=== PATIENT | male | born 1985 | race Caucasian/White ===

== ENCOUNTER 2018-12-23 08:31 | Emergency (ER) | payer BC ==
--- NOTE | 2018-12-23 08:52 | EDM.PDOC ---
ED HPI GENERAL MEDICAL PROBLEM - General Chief Complaint: Respiratory Problem Stated Complaint: COUGH Time Seen by Provider: 12/23/18 08:46 Source of Information: Reports: Patient History Limitations: Reports: No Limitations - History of Present Illness INITIAL COMMENTS - FREE TEXT/NARRATIVE: 33-year-old male presents to the ED for evaluation of a chronic cough of 4 months duration. States cough seems to be getting worse particularly last 3-4 weeks. He coughs severely when he lies down off awakens at night coughing to the point of emesis. Coughs at work sometimes to the point of nearly blacking out. He states occasionally sputum will come up. No hemoptysis. No change in weight. No night sweats. No problems swallowing. Has a history of asthma when he was a youngster but hasn't bothered him for many years. He always sounds nasally congested. I really aware of any postnasal drip. States his voice is becoming more hoarse the last 3 weeks. No fever or chills. On no medications. He 's had 2 normal chest x-rays done through the clinic in the last 4 months. He states he gets occasional heartburn but doesn't have to use Tums or Rolaids very often. Onset: Unknown/Unsure (Paroxysmal minimally productive cough for the last 4 months) Duration: Chronic, Getting Worse Location: Reports: Chest (Severe paroxysmal minimally productive cough worse at night when he lies down.) Quality: Reports: Other Severity: Severe (Cough) Improves with: Reports: Other (Better if he standing and in moist weather.) Worsens with: Reports: Other Context: Denies: Activity, Exercise, Lifting, Sick Contact, Trauma, Other Associated Symptoms: Reports: Chest Pain ( severe paroxysmal pressure minimally productive cough.), Cough (Occasional sputum production), cough w sputum, Loss of Appetite, Malaise, Shortness of Breath. Denies: No Other Symptoms (Worse when he lies down to try and sleep at night.), Diaphoresis, Fever/Chills ( central chest pain and rib pain from coughing so much.), Headaches, Nausea/ Vomiting, Rash, Seizure, Syncope, Weakness Treatments [employer]: Reports: Other (see below) (None.) - Related Data Allergies Allergy/AdvReac Type Severity Reaction Status Date / Time No Known Allergies Allergy Verified 12/23/18 08:43 Home Meds: Home Meds Albuterol Sulfate [Proventil Hfa] 1 - 2 puff INH Q6H 12/23/18 [History] Fluticasone Propionate [Flovent HFA 110 MCG] 2 puff .XX QID #1 mdi 12/23/18 [Rx] HYDROcodone/Chlorphen Polis [Hydrocodone-Chlorpheniram] 5 ml PO DAILY #60 ml [Rx] Omeprazole Magnesium [Prilosec Otc] 20 mg PO DAILY #42 tablet. 12/23/18 [Rx] Past Medical History Respiratory History: Reports: Asthma - Past Surgical History Musculoskeletal Surgical History: Reports: Other (See Below) Other Musculoskeletal Surgeries/Procedures:: hand sx Social & Family History - Tobacco Use Smoking Status *Q: Current Every Day Smoker Years of Tobacco use: 15 Packs/Tins Daily: 0.5 - Caffeine Use Caffeine Use: Reports: Coffee, Energy Drinks, Soda, Tea - Recreational Drug Use Recreational Drug Use: No - Living Situation & Occupation Occupation: Employed ED ROS GENERAL - Review of Systems Review Of Systems: See Below Constitutional: Reports: Malaise, Weakness, Fatigue (From disrupted sleep.). Denies: Fever, Chills, Night Sweats, Diaphoresis, Decreased Appetite, Weight Loss HEENT: Reports: Rhinitis (Chronic nasal congestion can breathe through the right side of his nose.), Sinus Problem, Throat Pain (From coughing so much.) Respiratory: Reports: Shortness of Breath, Cough (Chronic paroxysmal minimally productive cough for 4 months. Worse). Denies: Wheezing (Due to coughing so much.), Pleuritic Chest Pain Cardiovascular: Reports: Chest Pain (Central chest discomfort from coughing right rib pain from coughing so much.), Lightheadedness (Coughing can make him lightheaded and nearly passed out.), Other (Has had posttussive emesis from coughing so hard.). Denies: Blood Pressure Problem, Claudication, Orthopnea Endocrine: Reports: Fatigue GI/Abdominal: Reports: No Symptoms : Reports: No Symptoms Musculoskeletal: Reports: No Symptoms Skin: Reports: No Symptoms Neurological: Reports: No Symptoms Psychiatric: Reports: No Symptoms Hematologic/Lymphatic: Reports: No Symptoms Immunologic: Reports: No Symptoms ED EXAM, GENERAL - Physical Exam Exam: See Below Exam Limited By: No Limitations General Appearance: Alert, WD/WN, No Apparent Distress, Other (Vital signs temp 37.0 pulse at the bedside was 125. This was confirmed on my examination as well. Respiratory is 20 with a pulse of oxygen 96%. BP 133/97 voice is very raspy and harsh sounding.. Patient does report he has not yet ate or drank yet today.) Eye Exam: Bilateral Eye: Normal Inspection Ears: Normal TMs Nose: Other (Patient does have signs and symptoms of allergic rhinitis with marked swelling of the middle and superior turbinates bilaterally. His right naris is completely occluded from swelling.) Throat/Mouth: Other (Diffuse erythema of the throat. Tonsils are present but are small without exudate.) Head: Atraumatic, Normocephalic Neck: Normal Inspection, Supple, Non-Tender, Full Range of Motion. No: Lymphadenopathy (L), Lymphadenopathy (R), Thyromegaly (Thyroid gland is not palpable) Respiratory/Chest: No Accessory Muscle Use, Respiratory Distress (Mild tachypnea.), Decreased Breath Sounds, Rhonchi, Wheezing (Breath sounds are mildly decreased at both bases with bilateral expiratory intermittent wheezing.) . No: Lungs Clear, Normal Breath Sounds (Scattered rhonchi upper anterior lung riley.), Rales Cardiovascular: Normal Peripheral Pulses, No Edema, No Gallop (Tachycardia at rest 125-1 32/m.), No Murmur, No Rub, Tachycardia. No: Regular Rate, Rhythm Peripheral Pulses: 3+: Carotid (L), Carotid (R) GI/Abdominal: Normal Bowel Sounds, Soft, Non-Tender, No Organomegaly, No Abnormal Bruit, No Mass, Pelvis Stable Back Exam: Normal Inspection, Full Range of Motion. No: CVA Tenderness (L), CVA Tenderness (R) Extremities: Normal Inspection, Normal Range of Motion, Non-Tender, No Pedal Edema Neurological: Alert, Oriented, CN II-XII Intact, Normal Cognition Psychiatric: Normal Affect, Normal Mood Skin Exam: Warm, Dry, Intact, Normal Color, No Rash EKG INTERPRETATION EKG Date: 12/23/18 Time: 09:06 Rhythm: Other Rate (Beats/Min): 120 [place]: Normal P-Wave: Enlarged (Consider biatrial hypertrophy.) QRS: Other (RSR prime wave in V1 and V2 consider normal variant. Can also represent a mild right ventricular conduction delay. There is early R-wave transition consider septal hypertrophy or RVH.) ST-T: Other (T-wave inversion in aVF nonspecific finding) EKG Interpretation Comments: Abnormal ECG Course - Vital Signs Last Recorded V/S: Last Vital Signs Temp 37.0 C 12/23/18 08:39 Pulse 125 H 12/23/18 08:39 Resp 20 12/23/18 08:39 BP 133/97 H 12/23/18 08:39 Pulse Ox 93 L 12/23/18 08:53 - Orders/Labs/Meds Orders: Active Orders 24 hr Category Date Time Status EKG Documentation Completion [RC] STAT Care 12/23/18 08:58 Active Influenza Vaccine Charge [RC] .DISCHARGE Care 12/23/18 08:45 Active RT Aerosol Therapy [RC] ASDIRECTED Care 12/23/18 08:53 Active Meds: Medications Discontinued Medications Generic Name Dose Route Start Last Admin Trade Name Freq PRN Reason Stop Dose Admin Albuterol/Ipratropium 3 ml 12/23/18 08:53 12/23/18 09:02 Duoneb 3.0-0.5 Mg/3 Ml NEB 12/23/18 08:54 3 ml ONETIME ONE Administration Influenza Virus Vaccine 1 each 12/23/18 08:45 Pharmacy To Dose - Influenza Vaccine IM 12/23/18 08:46 ONETIME ONE Influenza Virus Vaccine 60 mcg 12/23/18 09:45 12/23/18 09:56 Fluzone Quad [id number] Syringe IM 12/23/18 09:46 60 mcg .ONCE ONE Administration - Radiology Interpretation Free Text/Narrative:: 33-year-old male presents to the ED with a harsh paroxysmal minimally productive cough for the last 4 months. Been getting worse the last 3 weeks. His voice is very hoarse from coughing so much. He will have cough near syncope and cough-induced emesis. Exam shows evidence of allergic rhinitis with likely postnasal drip. Her face is diffusely erythematous. Seems less likely to have a problem with GERD. He smokes about a quarter pack of cigarettes daily. Sputum feet does bring it up is usually snowed diaphoresis or night sweats. Of note he has a resting tachycardia of 125/min and is mildly hypertensive. He does have some mild wheezes from the bases of the lungs and decreased air entry to both lower lung riley. His symptoms may well be due to mild asthma symptoms with persistent irritation of the irritant receptors from coughing. May be aggravated by postnasal drip. Plan CT of chest to be done ECG to be done. - Re-Assessments/Exams Free Text/Narrative Re-Assessment/Exam: 12/23/18 09:46 CT chest has been completed. Other than a small to moderate hiatal hernia no pathology is seen within the lungs. Cardiac silhouette is normal. It's unclear at this point time what is keeping this young man coughing paroxysmally. He still has a resting tachycardia which probably does deserve further investigations. He has no obvious thyromegaly. I'm going to place him on Protonix 20 mg once daily at bedtime as he does have a hiatal hernia noted on CT to rule out reflux as a cause of his chronic cough. Secondly I believe it' s most likely still allergy induced asthma-like symptoms. Chronic irritation of his upper ureter and receptors in his airway. He knows how to use a metered- dose inhaler as he has an albuterol metered-dose inhaler. I'm going to place him on Flovent 2 puffs 3 times daily until the cough goes away which should be about 10 days. Also going to add Tussionex cough syrup or Pentasa 5 mils at bedtime to help him sleep. Follow-up is advised not markedly improved in 12-14 days time. Departure - Departure Time of Disposition: 09:57 Disposition: Home, Self-Care 01 Condition: Fair Clinical Impression: Chronic cough Allergic rhinitis Qualifiers: Allergic rhinitis trigger: unspecified Allergic rhinitis seasonality: non- seasonal Qualified Code(s): J30.89 - Other allergic rhinitis - Discharge Information *PRESCRIPTION DRUG MONITORING PROGRAM REVIEWED*: Not Applicable *COPY OF PRESCRIPTION DRUG MONITORING REPORT IN PATIENT TRACEY: Not Applicable Prescriptions: Fluticasone Propionate [Flovent HFA 110 MCG] 2 puff .XX QID #1 mdi HYDROcodone/Chlorphen Polis [Hydrocodone-Chlorpheniram] 5 ml PO DAILY #60 ml Omeprazole Magnesium [Prilosec Otc] 20 mg PO DAILY #42 tablet. Instructions: Nasal Allergies, Cough, Adult Referrals: Salome Mclean, RESERVATION CLERK [Primary Care Provider] - Forms: ED Department Discharge Additional Instructions: Evaluation the emergency room today in regards to a severe paroxysmal cough that produces emesis and weakness and lightheadedness the last 4 months. Minimally productive cough. No associated fever or chills. Exam reveals evidence of allergic rhinitis with complete occlusion of the right naris and 90 % occlusion of your left naris due to allergy issues. Chest reveals a few scattered scattered expiratory wheezes especially at lung bases. History does not suggest that you suffer from obvious gastroesophageal reflux disease. CT of the chest was done due to the length of time you've been coughing and it proved to be normal other than showing a small to moderate hiatal hernia which means the valve that is normally closed to the bottom of the food pipe to let food into the stomach is opened up in her chest most of the time making it very easy for you to reflux acid content or stomach content during the night when sleeping. One drop of acid is enough to keep a cough going for many days. Cause of your cough is allergy based i.e. atypical asthma without severe wheezing. Return receptors in the upper airway have become very inflamed and continued to make you cough paroxysmal. Treatment is to be albuterol neb treatment to puffs 4 times daily and 5 minutes after this use 2 puffs of Flovent through the spacing device. The Flovent is a steroid and is designed to take the inflammation out of the upper airway and bring the cough under control. Also suggest Prilosec 20 mg once daily at bedtime for the next 6 weeks as a trial agent to see if her cough goes away while on medication for potential reflux of acid during the night. Also wrote a prescription for cough syrup called dependent tests and that you are to take 5 mils about an hour before bedtime to help stop the cough and allow you to sleep through the night. If you are not markedly improved in 14 days time and you need to be reviewed. Because of resting tachycardia of 1 20/m. This could mean that your thyroid gland is overactive although it is not clinically enlarged. Further lab tests would be required to sort this out. Suggest follow-up with Estela Burk primary care physician . on the other side of the hospital. You could arrange an appointment with him at [phone]. - My Orders Last 24 Hours: My Active Orders 12/23/18 08:45 Influenza Vaccine Charge [RC] .DISCHARGE 12/23/18 08:53 RT Aerosol Therapy [RC] ASDIRECTED 12/23/18 08:58 EKG Documentation Completion [RC] STAT - Assessment/Plan Last 24 Hours: My Active Orders 12/23/18 08:45 Influenza Vaccine Charge [RC] .DISCHARGE 12/23/18 08:53 RT Aerosol Therapy [RC] ASDIRECTED 12/23/18 08:58 EKG Documentation Completion [RC] STAT
[2018-12-23] MEDS ORDERED: Albuterol/Ipratropium 3.0-0.5 MG/3 ML Neb Soln NEB ONE (08:53)
[2018-12-23] MEDS ORDERED: FLU Vacc QS2019-20(6MOS+)/PF 60 MCG/0.5 ML SYRINGE IM ONE (09:45)
--- NOTE | 2018-12-23 09:48 | CT ---
CT chest Technique: Multiple axial sections were obtained from above the lung apices inferiorly through the lung bases. Intravenous contrast was not utilized. Comparison: No prior chest imaging. Findings: Aorta shows no aneurysm. No mediastinal or hilar adenopathy is seen. No axillary adenopathy is seen. No pericardial thickening is seen. Diffuse fatty infiltration is noted within the liver. Lungs are clear. No acute parenchymal change is seen. No pleural effusions are seen. No pneumothorax is seen. Bone window settings were reviewed which shows no acute osseous abnormality. Impression: 1. No abnormality is appreciated on noncontrast chest CT exam. Diagnostic code #1
== END 2018-12-23 10:15 | disposition home or self-care (01) ==
LOC: JD.ED 08:31
DX: R05 Cough (principal); J30.89 Other allergic rhinitis; J45.909 Unspecified asthma, uncomplicated; F17.210 Nicotine dependence, cigarettes, uncomplicated; Z79.51 Long term (current) use of inhaled steroids
CPT/HCPCS: 71250; 71250-26; 90686; 93005; 93010; 94640; 99283; 99284-25; G0008; J7620-GY

== ENCOUNTER 2022-02-04 05:08 | Emergency (ER) | payer BC, OTHER ==
[2022-02-04 06:09] LABS: ESTIMATED GFR 118 mL/min (>60)
== END 2022-02-04 06:57 | disposition home or self-care (01) ==
LOC: JD.ED 05:08
DX: R06.02 Shortness of breath (principal)
CPT/HCPCS: 36415; 71045; 71045-26; 80048; 85025; 99283